=== PATIENT | female | born 1940 | race Caucasian/White ===

== ENCOUNTER 2017-01-04 09:53 | Outpatient (CLI) | payer MEDICARE, MEDICAID ==
--- NOTE | 2017-01-04 12:50 | MMO ---
BILATERAL SCREENING MAMMOGRAMS: Comparison is made to prior mammogram exams of 2016 and 2015. Interpreted with computer-aided detection. Scattered fibroglandular densities. Benign-appearing calcifications seen in both breasts. No evide nce of mass or distortion. No interval change noted. Recommend 1-year followup. IMPRESSION: BIRADS 2: Benign Finding(s) Routine annual screening mammography (for women over age 40) POS: [facility]
== END 2017-01-04 09:54 | disposition home or self-care (01) ==
LOC: SCSMAMMO 09:53 → MAMMO 09:54
PROVIDERS: ATTEND Family Medicine
DX: Z12.31 Encounter for screening mammogram for malignant neoplasm of breast (principal)
CPT/HCPCS: 77067; G0202

== ENCOUNTER 2017-09-27 09:15 | Outpatient (CLI) | payer MEDICARE, MEDICAID ==
--- NOTE | 2017-09-27 12:11 | MRI ---
MRI OF THE LUMBAR SPINE WITH AND WITHOUT IV CONTRAST: Date: 09/27/17 INDICATION: History of back surgery with low back pain and left-sided radiculopathy. There is concern for spinal stenosis. COMPARISON: Prior exam dated 04/28/16. TECHNIQUE: Multiplanar, multisequence MR images were obtained of the lumbar spine with and without contrast foll owing administration of 19 mL MultiHance. FINDINGS: Again seen is loss of normal disc space height and signal at all lumbar intervertebral levels, but mo st pronounced at L3-4 through L5-S1. There is postprocedural change again seen consistent with sydnie ctomy at L5-S1. The visualized retroperitoneum reveals no definite acute abnormality. No acute fracture is evident. At L5-S1, there is a residual broad based disc bulge that is slightly more asymmetric to the right th at does encroach on the lateral recess of L5-S1 without definite impingement of the traversing right S1 nerve root. There is some mild enhancement surrounding the traversing right S1 nerve root, which i s suspicious for a small amount of fibrosis around the exiting nerve root. This is most evident on im age 48 of series 10. This is within the region of mild fibrosis seen within the anterior epidural spa ce at the L5-S1 laminectomy site on the comparison examination. No appreciable neural foraminal narrowing or central canal narrowing is demonstrated. At L4-5, there is a broad based bulge with facet hypertrophy inducing mild bilateral neural foraminal narrowing, which is stable. At L3-4, there is a broad based bulge with ligamentum flavum hypertrophy and facet hypertrophy induci ng mild central canal narrowing and mild bilateral neural foraminal narrowing, which is stable. At L2-3, there is a broad based bulge with facet hypertrophy inducing mild central canal narrowing wi th mild bilateral neural foraminal narrowing which is stable. At L1-L2, there is a broad based bulge with facet hypertrophy inducing mild bilateral neural foramina l narrowing, which is stable. At T12-L1, there is no appreciable central canal or neural foraminal narrowing. On the postcontrast images, there is no appreciable enhancement of the nerve root. IMPRESSION: 1. Slightly asymmetric to the right broad based disc bulge at L5-S1 likely inducing at least mild to moderate right lateral recess narrowing at L5-S1 without definite impingement of traversing S1 nerve root. 2. Mild enhancement likely related to perineural scar involving the right S1 nerve root as it amairani ses the lateral recess at the L5-S1 level. 3. All of the above findings appear similar to the comparison examination. 4. Mild neural foraminal narrowing at L1-2 through L4-5, stable. 5. Mild central canal narrowing at L2-3 and L3-4 are stable. POS: [facility]
[2017-09-27] MEDS ORDERED: Gadobenate Dimeglumine 529 MG/1 ML (20ML VIAL) ONE (13:20)
== END 2017-09-27 09:16 | disposition home or self-care (01) ==
LOC: TBSIIMAG 09:15
PROVIDERS: ATTEND Nurse Practitioner Family
DX: M48.062 Spinal stenosis, lumbar region with neurogenic claudication (principal); M48.07 Spinal stenosis, lumbosacral region; M51.27 Other intervertebral disc displacement, lumbosacral region; M99.83 Other biomechanical lesions of lumbar region
CPT/HCPCS: 72158; 82565; A9579

== ENCOUNTER 2017-12-28 13:03 | Observation (INO) | payer MEDICARE, MEDICAID ==
[2017-12-28 14:53] LABS: #Basophils 0.1 thou/uL (0.0-0.2); #Eosinphils 0.2 thou/uL (0.0-0.7); #Lymphocytes 2.5 thou/uL (1.20-3.40); #Monocytes 0.5 thou/uL (0.11-0.59); #Neutrophils 3.9 thou/uL (1.40-6.50); %Basophils 0.7 % (0.0-1.0); %Eosinophils 3.2 % (0.0-10.0); %Lymphocytes 34.4 % (21.0-51.0); %Monocytes 7.6 % (0.0-10.0); %Neutrophils 54.1 % (42.0-75.0); Hemoglobin 14.8 g/dL (12.0-16.0); Mean Corpuscular HGB CONC 33.4 g/dL (32.0-36.0); Mean Corpuscular Volume 92.7 fL (78.0-98.0); Mean Platelet Volume 5.9 fL (7.4-10.4); Platelet Count 285 thou/uL (130-400); RBC Distribution Width 12.3 % (11.5-14.5); Red Blood Cell (RBC) Count 4.77 mill/uL (4.20-5.40); White Blood Cell (WBC) Count 7.2 thou/uL (4.8-10.8)
--- NOTE | 2017-12-28 15:06 | RAD ---
PORTABLE CHEST: HISTORY: Dyspnea. Sudden onset of chest and right jaw pain. COMPARISON: 11/01/2013 study. FINDINGS: Heart size is enlarged with atherosclerotic changes of the aorta. The lungs are clear of any infiltr ates. No signs of overt failure. Postoperative changes of the right shoulder are present. IMPRESSION: Cardiomegaly. No acute findings. POS: [facility]
--- NOTE | 2017-12-28 15:08 | CT ---
CT HEADA WITHOUT CONTRAST: Date: 12/28/17 Multiple axial tomograms obtained through the head without IV enhancement. INDICATION: Mental status change. FINDINGS: The ventricles have normal size and position. No evidence of intracranial mass, hemorrhage, or infarc t. Sinuses and mastoids are well aerated. IMPRESSION: No acute findings. POS: [facility]
[2017-12-28 15:14] LABS: Bilirubin Negative (Negative); Blood, Urine Negative (Negative); Clarity CLEAR (Clear); Glucose, Urine (Dipstick) Negative (Negative); Leukocyte Negative (Negative); Nitrite Negative (Negative); Protein, Urine (Dipstick) Negative (Neg-Trace); Specific Gravity, Urine 1.009 (1.002-1.036); Urobilinogen 0.2 mg/dL (0.2-1.0)
[2017-12-28 15:21] LABS: ALT (SGPT) 16 U/L (8-55); AST (SGOT) 19 U/L (5-34); Albumin 4.4 g/dL (3.4-4.8); Alkaline Phosphatase 98 U/L (40-150); Anion Gap 13 mmol/L (10-20); BUN (Urea Nitrogen) 11 mg/dL (9.8-20.1); Bilirubin, Total 0.3 mg/dL (0.2-1.2); Calc. Creatinine Clearance 0 mL/min (70-130); Carbon Dioxide 23 mmol/L (23-31); Chloride 105 mmol/L (98-107); Estimated GFR-MDRD 82; Globulin 3.3 g/dL (2.4-3.5); Glucose 99 mg/dL (83-110); Potassium 4.6 mmol/L (3.5-5.1); Protein, Total 7.7 g/dL (6.0-8.3); Sodium 136 mmol/L (136-145)
[2017-12-28 15:25] LABS: CKMB 2.1 ng/mL (0-6.6); Troponin I Less than 0.010 ng/mL (< 0.028)
[2017-12-28] MEDS ORDERED: Acetaminophen 325 MG TAB ONE (18:54)
[2017-12-28 19:14] LABS: Troponin I Less than 0.010 ng/mL (< 0.028)
[2017-12-28] MEDS ORDERED: Ondansetron HCl/PF 4 MG/2 ML Vial IVP PRN (21:25)
[2017-12-28] MEDS ORDERED: Aspirin 325 mg Enteric Coated Tablet PO SCH (21:45)
[2017-12-28 21:46] LABS: Troponin I Less than 0.010 ng/mL (< 0.028)
--- NOTE | 2017-12-29 10:27 | CON ---
DATE OF CONSULTATION: 12/29/2017 CONSULTING PHYSICIAN: Hospitalist Service IMPRESSION: 1. Possible transient ischemic attack with transient dizziness and right-sided facial numbness. 2. Hypertension. 3. Hyperlipidemia. PLAN: 1. Aspirin 81 mg a day. 2. Carotid ultrasound. 3. Echocardiogram. 4. MRI of the brain. Ms. 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 There is a slight amount of nausea associated with it. There was no associated h eadache, slurred speech, difficulty swallowing, double vision, lateralized weakness or numbness of th e extremities. Symptoms lasted around 2 hours by her account. She came to the emergency room and quesada d a CT scan of the brain done. She was told that nothing remarkable was found. Her EKG showed vince l sinus rhythm. No other information is available at this point due to the fact the computer systems are down. She denies any past history of stroke-like symptoms in the past. She was not consistent about taking aspirin on a daily basis. She cannot tolerate statins. PAST MEDICAL HISTORY: Past history also notable for lower back pain with radicular symptoms in the l eft leg, bowel obstruction, irritable bowel syndrome, ulcerative colitis, some type of cardiac "spasm " followed by Dr. Marquez. ALLERGIES: CODEINE, HYDROCODONE. SOCIAL HISTORY: No tobacco or alcohol use. FAMILY HISTORY: Noncontributory. REVIEW OF SYSTEMS: No complaint of chest pain, shortness of breath, alteration of consciousness, abd ominal pain or upset stomach. PHYSICAL EXAMINATION: GENERAL: She is a well-nourished elderly lady in no distress. VITAL SIGNS: Blood pressure 141/86, pulse 70, respirations 16, temperature 98.3. HEENT: Pupils equal and reactive. Conjunctivae clear. Oropharynx clear. NECK: Supple. EXTREMITIES: No cyanosis, clubbing or edema. 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 NEUROLOGIC: She is alert and appropriate. Her speech is fluent and clear. Cranial nerves are intac t. No focal deficits are noted. Gait was not tested. SUMMARY: This is a 77-year-old woman with past history of hypertension with transient symptoms sugge stive of possible basilar ischemia. Workup is underway. Would continue her on aspirin and given dina t she cannot tolerate statins we will have to forego treatment in this area.
[2017-12-29] MEDS: Aspirin 325 mg Enteric Coated Tablet PO SCH (11:23)
[2017-12-29] MEDS: Enoxaparin Sodium 40 MG/0.4 ML SYRINGE SC SCH (11:23)
--- NOTE | 2017-12-29 11:48 | ULT ---
CAROTID ULTRASOUND WITH GOMEZ SCALE AND DOPPLER DUPLEX COLOR FLOW IMAGING SPECTRAL ANALYSIS PERFORMED: CLINICAL INDICATION: TIA. FINDINGS: There is mild scattered atherosclerotic calcification of the carotid arteries. PEAK SYSTOLIC VELOCITY (CM/S): Right CCA 86 Left CCA 100 Right ICA 92 Left ICA 96 There is antegrade directional flow within the visualized bilateral vertebral arteries. IMPRESSION: 1. No hemodynamically significant stenosis of the right internal carotid artery. 2. No hemodynamically significant stenosis of the left internal carotid artery. POS: [facility]
[2017-12-29 12:42] LABS: Anion Gap 12 mmol/L (10-20); BUN (Urea Nitrogen) 13 mg/dL (9.8-20.1); Calc. Creatinine Clearance 0 mL/min (70-130); Calcium 10.8 mg/dL (7.8-10.44); Carbon Dioxide 26 mmol/L (23-31); Cardiac Risk 5.6 (Less than 4.5); Chloride 103 mmol/L (98-107); Cholesterol 274 mg/dl (< 200 Desired); Estimated GFR-MDRD 77; Glucose 104 mg/dL (83-110); HDL Cholesterol 49 mg/dL (>60 Neg Risk); LDL Cholesterol, Calculated 188 mg/dL; Sodium 137 mmol/L (136-145); Triglycerides 186 mg/dL (Less than 150)
--- NOTE | 2017-12-29 12:42 | MRI ---
MRI BRAIN WITHOUT CONTRAST: INDICATIONS: TIA. Mental status change. TECHNIQUE: Multiplanar, multisequence imaging of the brain obtained. FINDINGS: The ventricles have normal size and position. Mild chronic ischemic white matter change. There is n o evidence of restricted diffusion. There is no evidence of acute infarct, mass, or edema. The intracranial internal carotid arteries and proximal cerebral arteries show flow voids. IMPRESSION: Mild chronic ischemic change. No evidence of acute infarct. POS: [facility]
[2017-12-29] MEDS ORDERED: TRAMADOL HCL 50 MG PO PRN (15:45)
[2017-12-29 17:45] LABS: Hemoglobin 14.1 g/dL (12.0-16.0); White Blood Cell (WBC) Count 7.3 thou/uL (4.8-10.8)
[2017-12-29 17:46] LABS: #Eosinphils 0.2 thou/uL (0.0-0.7); #Lymphocytes 2.7 thou/uL (1.20-3.40); #Monocytes 0.6 thou/uL (0.11-0.59); #Neutrophils 3.7 thou/uL (1.40-6.50); %Basophils 0.6 % (0.0-1.0); %Eosinophils 2.9 % (0.0-10.0); %Monocytes 8.3 % (0.0-10.0); %Neutrophils 51.3 % (42.0-75.0); Mean Corpuscular HGB CONC 31.9 g/dL (32.0-36.0); Mean Corpuscular Volume 94.1 fL (78.0-98.0); Mean Platelet Volume 6.6 fL (7.4-10.4); Platelet Count 286 thou/uL (130-400); RBC Distribution Width 12.5 % (11.5-14.5)
[2017-12-29] MEDS: Acetaminophen 325 MG TAB PO PRN ×2 (18:47→23:11)
[2017-12-29] MEDS ORDERED: Atorvastatin Calcium 40 MG TAB PO SCH (21:00)
[2017-12-30] MEDS ORDERED: Isosorbide Mononitrate 20 MG TAB PO SCH (09:00)
[2017-12-30] MEDS ORDERED: Amlodipine 5 MG TAB PO SCH (09:00)
[2017-12-30] MEDS: Enoxaparin Sodium 40 MG/0.4 ML SYRINGE SC SCH (09:05)
[2017-12-30] MEDS: Aspirin 325 mg Enteric Coated Tablet PO SCH (09:07)
[2017-12-30 12:08] VITALS: BP 128/63; TEMP 98.6
--- NOTE | 2017-12-30 12:36 | DIS ---
DATE OF ADMISSION: 12/29/2017 DATE OF DISCHARGE: 12/30/2017 PRIMARY CARE PHYSICIAN: KRYSTA Sanchez DISCHARGE DIAGNOSES: 1. Transient ischemic attack. 2. Statin intolerance. 3. Hypertension. 4. Dyslipidemia. 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 6. History of bowel obstruction x2. 7. History of bulging disk causing pinched nerve in lower back with left lower leg radiculopathy. 8. Gastroesophageal reflux disease. 9. Peripheral neuropathy, non-diabetic 10. Arthritis. DISCHARGE MEDICATIONS: New medications; aspirin 325 mg daily and flaxseed oil 1000 mg daily. Resume home medications as follows; isosorbide mononitrate 10 mg daily, Flexeril 10 mg p.o. t.i.d. p.r.n., amlodipine 5 mg daily, multivitamin daily, Zoloft 25 mg daily, Protonix 40 mg at bedtime, lisinopril 40 mg at bedtime, tramadol p.r.n. PROCEDURES DONE IN THE HOSPITAL: 1. Carotid Doppler ultrasound, which is negative for any hemodynamically significant stenosis. 2. MRI of the brain which shows mild chronic ischemic changes without evidence of acute infarction. 3. Transthoracic echocardiogram which shows preserved ejection fraction at 55%-60% and diastolic dys function, mild. INHOUSE CONSULTATION: Neurology, Dr. Anshu Graham. HISTORY OF PRESENTING ILLNESS: Ms. Ho is a pleasant 77-year-old female who presented to the [facility] room with complaints of severe dizziness while sitting in her recliner associated with numbness in the right jaw, mild headache, shortness of breath, dry cough and nausea. She was admitted as a T IA rule out. Initial CT scan done in the emergency room was unremarkable. Twelve lead EKG showed le ft ventricular hypertrophy. Chest x-ray showed cardiomegaly. She was given 325 mg of aspirin and was admitted to stroke floor fo r further workup. HOSPITAL COURSE: The patient was seen by Dr. Graham from Neurology department as well as Stroke [facility]. She underwent CVA workup with echo, MRI and carotid Doppler ultrasound. All were unremarkable. Dr. Graham thought this might be a TIA and her aspirin dose was increased from 81 to 325 mg daily, e nteric-coated. She tolerated this very well. As of this morning, she is back to her baseline and quesada s no reoccurrence of her symptoms. She has been cleared by speech therapist, occupational therapist and physical therapist as well. She already has home health and she will resume the home health with OT, PT and assisted at home. She was seen and examined prior to discharge. PHYSICAL EXAMINATION: VITAL SIGNS: Stable. Blood pressure 128/63, heart rate 67, temperature 98.6, saturating 93% on room air. NEUROLOGIC: Examination is nonfocal. CHEST: Clear to auscultation bilaterally. LABORATORY DATA: Urinalysis is unremarkable. Serum chemistries showed triglycerides 186, total chol esterol 274, LDL 188, HDL 49. Cardiac enzymes were trended and were negative troponin x3. Please note that the patient has a statin intolerance. She will be taking fish oil or omega 3 flaxse ed oil, whichever she prefers for hypertriglyceridemia. I do see Livalo listed as a home medication in the emergency room, but for some reason it was not listed as a medication when it was reconsulted upon the floor. The patient will resume it if she is actually taking it. She will follow up with [facility] care physician in 7-10 days.
--- NOTE | 2018-01-01 10:15 | HP ---
PRIMARY CARE DOCTOR: KRYSTA Sanchez CODE STATUS: FULL CODE. TIME OF EVALUATION: This note is written post hours since there was computer system problems. The grisel gonzalez was seen on 12/28/2017 at around 8:00 p.m. CHIEF COMPLAINT: Dizziness. HISTORY OF PRESENT ILLNESS: This is a 77-year-old female patient with past medical history of multip le comorbidities including ulcerative colitis, deformity of the left upper extremity, arrhythmia, hyp erlipidemia, hypertension, nondiabetic neuropathy, came to the hospital after having complaints of se lyn dizziness, the symptoms started around 10:00 a.m. in the morning, when she was sitting in her re cliner. She reported also some numbness in the right side of the face and symptoms were also spread into the right upper and lower extremity. The patient reported that the symptoms were moderate. No clear triggers, no alleviating factors. Symptoms have been on and off, but has been improving during the night. REVIEW OF SYSTEMS: No fever, chills, generalized weakness. Respiratory: No cough, sputum productio n or shortness of breath. Cardiovascular: No chest pain or palpitations. Gastrointestinal: No nausea, no vomiting, diarrhea or abdominal pain. ADHESION TESTER: The patient had dizzine ss that is right side, tingling and numbness mostly on the face. Not feeling lightheaded. Genitouri nary: No burning on urination. Extremities: No leg swelling. All systems are reviewed and negativ e except for the findings mentioned above. PAST MEDICAL HISTORY: Positive for the findings mentioned in the HPI. PAST SURGICAL HISTORY: Positive for bilateral cataract surgery, low back spur removal, appendectomy, cholecystectomy, hysterectomy, bilateral knee replacement, bilateral feet surgery, history of tubal ligation, right rotator cuff surgery, and right elbow surgery x2. PSYCHIATRIC HISTORY: No previous psychiatric history. SOCIAL HISTORY: The patient denies alcohol. Denies drugs. No smoking history. FAMILY HISTORY: Reviewed and noncontributory for current presentation. ALLERGIES: CODEINE, HYDROCODONE, STATINS. REPORTED MEDICATIONS: Lisinopril, pantoprazole, isosorbide mononitrate, amlodipine, sertraline, Liva lo, meloxicam, Vison Vitamin, fish oil. PHYSICAL EXAMINATION: VITAL SIGNS: On presentation, blood pressure 166/82 with heart rate 64, respiratory rate was 20, tem perature 98.2, oxygen saturation 94% on room air. GENERAL APPEARANCE: The patient is alert, oriented, no acute distress. HEENT: Normocephalic, conjunctivae. Moist oral mucosa. Anicteric. NECK: No JVD. RESPIRATORY: Bilateral air entry. No rales, no wheezing. Symmetric expansion. CARDIOVASCULAR: Normal rate, regular rhythm. No murmurs, no gallop. No edema. ABDOMEN: Soft, normal bowel sounds. MUSCULOSKELETAL: Baseline range of motion and strength. No tenderness. SKIN: Warm and intact. No pallor, no rash, no redness. Peripheral pulses are present. Capillary r efill seems to be intact. NEUROLOGIC: The patient has possible right-sided weakness . No evidence of any other focal wea kness. Baseline speech. Cranial nerves II-XII intact. PSYCHIATRIC: The patient is in good mood, little bit anxious due to the findings, oriented and optim al judgment. LABORATORY DATA: EKG was discussed with performing physician from ER shows normal sinus rhythm with a rate of 65, minimum voltage criteria for LVH, no acute ischemic event. Findings were seen. RADIOLOGY: The patient had negative CT head without contrast. The chest x-ray showed cardiomegaly, no acute findings. The labs were reviewed by myself. The patient has a white count 7.2, hemoglobin 14.8, MCV 92.7, platelet count 185. Chemistry: Sodium 136, potassium 4.6, chloride 105, carbon diox pete 23, anion gap 13, BUN 11, creatinine 0.6, GFR 82, glucose 99, calcium 11, total bilirubin 0.3, T 19, ALT 16, alkaline phosphatase 98, CK-MB 2.1. Troponin has been negative x3. Triglyceride was c hecked this morning is 186, cholesterol 274. UA was done and was negative. ASSESSMENT AND PLAN: The patient was placed in the hospital with following medical problems: 1. Possible transient ischemic attack. The patient will have a stroke protocol. We will do MRI, ca rotid Doppler, echo, consult Neurology. We will follow workup and consultation recommendation for fu rther management. Neuro checks. 2. Hypercalcemia. Calcium 11.0, gradually this is mild, might need some IV fluids, monitor and adju st treatment as needed. 3. Hyperlipidemia, triglycerides were high and high cholesterol and checked this morning, we will re concile home meds, we will adjust treatment as needed, low cholesterol diet is advised. 4. Uncontrolled hypertension, systolic blood pressure in the 160s. I will reconcile home meds, we w ill allow permissive hypertension given new onset of neurological symptoms. 5. Risk assessment, the patient is a high risk due to new presentation of neurological symptoms and high risk for developing larger stroke . 6. Deep venous thrombosis prophylaxis.
== END 2017-12-30 14:10 | disposition home health service (06) ==
LOC: 2SE 13:03 → ERS 13:03 → 2SE 17:35
PROVIDERS: ADMIT Internal Medicine; ATTEND Internal Medicine
DX: G45.9 Transient cerebral ischemic attack, unspecified (principal); E78.5 Hyperlipidemia, unspecified; G62.9 Polyneuropathy, unspecified; E83.52 Hypercalcemia; Q74.0 Other congenital malformations of upper limb(s), including shoulder girdle; K58.9 Irritable bowel syndrome, unspecified; M51.16 Intervertebral disc disorders with radiculopathy, lumbar region; M19.90 Unspecified osteoarthritis, unspecified site; I10 Essential (primary) hypertension; Z88.5 Allergy status to narcotic agent; Z79.899 Other long term (current) drug therapy; Z88.8 Allergy status to other drugs, medicaments and biological substances
CPT/HCPCS: 70450; 70551; 71045; 80048; 80053; 80061; 81003; 82553; 84484 ×2; 85025 ×2; 90662; 93005; 93306; 93880; 96372 ×2; 97139; 99285; G0008; G0378 ×2; G8978; G8979; G8980; 36415; 90471; G8996-GN-CH; G8997-GN-CH; G8998-GN-CH; J1650

== ENCOUNTER 2018-08-30 11:30 | Emergency (ER) | payer MEDICARE, OTHER ==
[2018-08-30 12:09] LABS: #Basophils 0.1 thou/uL (0.0-0.2); #Eosinphils 0.2 thou/uL (0.0-0.7); #Monocytes 0.8 thou/uL (0.11-0.59); %Basophils 0.8 % (0.0-1.0); %Lymphocytes 37.3 % (21.0-51.0); %Neutrophils 49.8 % (42.0-75.0); Hemoglobin 14.4 g/dL (12.0-16.0); Mean Corpuscular HGB CONC 33.4 g/dL (32.0-36.0); Mean Corpuscular Hemoglobin 30.7 pg (27.0-31.0); Mean Corpuscular Volume 91.9 fL (78.0-98.0); Mean Platelet Volume 5.9 fL (7.4-10.4); Platelet Count 298 thou/uL (130-400); RBC Distribution Width 12.6 % (11.5-14.5); Red Blood Cell (RBC) Count 4.71 mill/uL (4.20-5.40); White Blood Cell (WBC) Count 7.9 thou/uL (4.8-10.8)
[2018-08-30 12:32] LABS: ALT (SGPT) 18 U/L (8-55); AST (SGOT) 17 U/L (5-34); Albumin 4.4 g/dL (3.4-4.8); Alkaline Phosphatase 110 U/L (40-150); Anion Gap 12 mmol/L (10-20); BUN (Urea Nitrogen) 11 mg/dL (9.8-20.1); Bilirubin, Total 0.3 mg/dL (0.2-1.2); Calc. Creatinine Clearance 0 mL/min (70-130); Calcium 11.3 mg/dL (7.8-10.44); Carbon Dioxide 28 mmol/L (23-31); Chloride 102 mmol/L (98-107); Estimated GFR-MDRD 76; Globulin 3.5 g/dL (2.4-3.5); Glucose 91 mg/dL (83-110); Magnesium 2.7 mg/dL (1.6-2.6); Potassium 4.6 mmol/L (3.5-5.1); Protein, Total 7.9 g/dL (6.0-8.3); Sodium 137 mmol/L (136-145)
[2018-08-30 13:32] LABS: Bilirubin Negative (Negative); Blood, Urine Negative (Negative); Clarity CLEAR (Clear); Glucose, Urine (Dipstick) Negative (Negative); Leukocyte Trace (Negative); Nitrite Negative (Negative); Protein, Urine (Dipstick) Negative (Neg-Trace); Specific Gravity, Urine 1.008 (1.002-1.036); Urobilinogen 0.2 mg/dL (0.2-1.0)
[2018-08-30 13:39] LABS: Bacteria/HPF None Seen HPF (None Seen); Hyaline Casts/LPF 0-3 HYALINE CAST LPF (0-3 Hyaline); RBC/HPF 0-3 HPF (0-3); Squamous Epithelial 0-3 HPF (0-3); WBC/HPF 0-3 HPF (0-3)
[2018-08-30] MEDS ORDERED: traMADol HCl 50 MG TAB ONE (14:13)
== END 2018-08-30 14:25 | disposition home or self-care (01) ==
LOC: ERS 11:30
DX: M62.830 Muscle spasm of back (principal); I49.9 Cardiac arrhythmia, unspecified; E78.5 Hyperlipidemia, unspecified; K21.9 Gastro-esophageal reflux disease without esophagitis; I10 Essential (primary) hypertension; M19.90 Unspecified osteoarthritis, unspecified site; F41.9 Anxiety disorder, unspecified; Z79.899 Other long term (current) drug therapy; Z79.82 Long term (current) use of aspirin
CPT/HCPCS: 36415; 80053; 81003; 81015; 83735; 85025; 96360; 96361

== ENCOUNTER 2018-09-24 12:22 | Outpatient (CLI) | payer MEDICARE, MEDICAID ==
--- NOTE | 2018-09-24 13:02 | BD ---
Exam: DEXA bone density study: HISTORY: Postmenopausal, estrogen deficiency. COMPARISON: 11/05/2015. FINDINGS: Lumbar Spine: BMD (g/cm2) L1 0.948 T-Score: -0.4 L2 1.080 T-Score: +0.5 L3 1.178 T-Score: +0.9 L4 1.076 T-Score: +0.1 L1-L4 1.073 T-Score: +0.2 Within normal limits with no increased risk for fracture. Essentially stable from prior study. Left Hip: Femoral Neck: 0.600 T-Score: -2.2 Total Femur: 0.770 T-Score: -1.4 Evidence for osteopenia with increased risk for fracture. Bone mineral density has decreased approximately 1% from the prior study. Transcribed Date/Time: 09/24/2018 1:23 PM
== END 2018-09-24 12:23 | disposition home or self-care (01) ==
LOC: BICMAMMO 12:22
PROVIDERS: ATTEND Nurse Practitioner
DX: Z78.0 Asymptomatic menopausal state (principal); M85.859 Other specified disorders of bone density and structure, unspecified thigh
CPT/HCPCS: 77080

== ENCOUNTER 2020-08-02 00:10 | Inpatient (IN) | payer MEDICARE, MEDICAID ==
[2020-08-02] MEDS ORDERED: Ketamine 50 MG/ML (10ML VIAL) ONE (02:25)
[2020-08-02] MEDS ORDERED: Midazolam HCl 2 mg/2 ml Vial ONE (02:26)
[2020-08-02] MEDS ORDERED: Iothalamate Meglumine 60% 50 ML VIAL FS ONE (02:27)
[2020-08-02 02:32] LABS: SARS-CoV-2 NAA Rapid Test Not Detected (NotDetected)
[2020-08-02] MEDS ORDERED: PROPOFOL 200 MG/20 ML VIAL ONE (02:32)
[2020-08-02] MEDS ORDERED: Senokot S 8.6-50 MG TAB PO PRN (02:33)
[2020-08-02] MEDS ORDERED: Bisacodyl 5 MG TAB PO PRN (02:33)
[2020-08-02] MEDS ORDERED: Ondansetron PF 4 MG/2 ML Vial IVP PRN (02:33)
[2020-08-02] MEDS ORDERED: Morphine 2 MG/ML VIAL SLOW IVP PRN (02:35)
[2020-08-02] MEDS ORDERED: hydrALAZINE 20 MG/ML VIAL SLOW IVP PRN (02:35)
[2020-08-02] MEDS ORDERED: Ondansetron PF 4 MG/2 ML Vial ONE ×2 (03:06→03:07)
[2020-08-02 04:50] VITALS: BMI 38.0
[2020-08-02] MEDS: Potassium Chloride 10 MEQ in Dextrose 5%-Lactated Ringers 1,000 ML IV SCH ×2 (05:05→08:23)
[2020-08-02 05:50] LABS: Hemoglobin 13.1 g/dL (12.0-16.0); Mean Corpuscular HGB CONC 32.9 g/dL (32.0-36.0); Mean Corpuscular Hemoglobin 30.6 pg (27.0-31.0); Mean Corpuscular Volume 93.1 fL (78.0-98.0); Mean Platelet Volume 6.5 fL (7.4-10.4); Platelet Count 251 thou/uL (130-400); RBC Distribution Width 12.5 % (11.5-14.5); Red Blood Cell (RBC) Count 4.28 mill/uL (4.20-5.40); White Blood Cell (WBC) Count 11.2 thou/uL (4.8-10.8)
[2020-08-02 06:09] LABS: ALT (SGPT) 16 U/L (8-55); AST (SGOT) 18 U/L (5-34); Albumin 3.7 g/dL (3.4-4.8); Alkaline Phosphatase 106 U/L (40-110); Anion Gap 12 mmol/L (10-20); BUN (Urea Nitrogen) 13 mg/dL (9.8-20.1); Bilirubin, Total 0.3 mg/dL (0.2-1.2); Calc. Creatinine Clearance 82 mL/min (70-130); Calcium 10.7 mg/dL (7.8-10.44); Carbon Dioxide 23 mmol/L (23-31); Chloride 107 mmol/L (98-107); Globulin 3.1 g/dL (2.4-3.5); Glucose 114 mg/dL (83-110); Potassium 4.2 mmol/L (3.5-5.1); Protein, Total 6.8 g/dL (5.8-8.1); Sodium 138 mmol/L (136-145)
[2020-08-02 06:21] LABS: Band 9 % (5-11); Eosinophils 1 % (0-10); Lymphocytes 13 % (21-51); MDiff Complete? YES; Monocytes 4 % (0-10); Neutrophil 72 % (42-75); Platelet Morphology Comment Appears Adequate; RBC Morphology Normal; Reactive Lymphocytes 1 % (0-10)
[2020-08-02] MEDS: Enoxaparin Sodium 30 MG/0.3 ML SYRINGE SC SCH (07:56)
[2020-08-02] MEDS: Amlodipine 5 MG TAB PO SCH (07:56)
[2020-08-02] MEDS: Famotidine 20 MG TAB PO SCH ×2 (07:56→20:26)
[2020-08-02] MEDS: Aspirin 325 mg Enteric Coated Tablet PO SCH (07:56)
[2020-08-02] MEDS: Acetaminophen 325 MG TAB PO PRN (20:25)
[2020-08-02] MEDS: Morphine 4 MG/ML VIAL SLOW IVP PRN (22:55)
[2020-08-03] MEDS: Potassium Chloride 10 MEQ in Dextrose 5%-Lactated Ringers 1,000 ML IV SCH ×3 (02:17→19:40)
[2020-08-03] MEDS: Amlodipine 5 MG TAB PO SCH (10:06)
[2020-08-03] MEDS: Cholecalciferol (Vitamin D3) 400 UNITS TAB PO SCH (10:06)
[2020-08-03] MEDS: Famotidine 20 MG TAB PO SCH ×2 (10:06→20:22)
[2020-08-03] MEDS: Aspirin 325 mg Enteric Coated Tablet PO SCH (10:06)
[2020-08-03] MEDS: Enoxaparin Sodium 30 MG/0.3 ML SYRINGE SC SCH (10:07)
[2020-08-03] MEDS: Morphine 4 MG/ML VIAL SLOW IVP PRN (12:48)
[2020-08-03] MEDS ORDERED: Zoledronic Acid 4 MG in Sodium Chloride 0.9% 100 ML IVPB SCH (16:45)
[2020-08-03] MEDS: FLAXSEED OIL 1000 MG PO SCH (22:02)
[2020-08-03] MEDS: Acetaminophen 325 MG TAB PO PRN (22:25)
[2020-08-04] MEDS: Potassium Chloride 10 MEQ in Dextrose 5%-Lactated Ringers 1,000 ML IV SCH ×2 (05:24→15:55)
[2020-08-04 07:12] LABS: Anion Gap 11 mmol/L (10-20); BUN (Urea Nitrogen) 9 mg/dL (9.8-20.1); Calc. Creatinine Clearance 84 mL/min (70-130); Carbon Dioxide 24 mmol/L (23-31); Chloride 108 mmol/L (98-107); Glucose 109 mg/dL (83-110); Potassium 4.2 mmol/L (3.5-5.1); Sodium 139 mmol/L (136-145)
[2020-08-04] MEDS: Famotidine 20 MG TAB PO SCH ×2 (08:34→20:29)
[2020-08-04] MEDS: Cinacalcet HCl 30 MG TAB PO SCH (08:34)
[2020-08-04] MEDS: Cholecalciferol (Vitamin D3) 400 UNITS TAB PO SCH (08:34)
[2020-08-04] MEDS: Amlodipine 5 MG TAB PO SCH (08:34)
[2020-08-04] MEDS: Aspirin 325 mg Enteric Coated Tablet PO SCH (08:34)
[2020-08-04] MEDS: Enoxaparin Sodium 30 MG/0.3 ML SYRINGE SC SCH (08:35)
[2020-08-04] MEDS ORDERED: Iopamidol-370 76% 500 ML 1 ML ONE (10:06)
[2020-08-04] MEDS ORDERED: Diphenoxylate HCl/Atropine Tablet PO PRN (12:15)
[2020-08-04] MEDS: Acetaminophen 325 MG TAB PO PRN ×2 (14:55→21:51)
[2020-08-04] MEDS: Artificial Tear Sol 15 ML BOT EA EYE SCH ×2 (15:54→20:29)
[2020-08-05] MEDS: Potassium Chloride 10 MEQ in Dextrose 5%-Lactated Ringers 1,000 ML IV SCH (05:39)
[2020-08-05] MEDS: Aspirin 325 mg Enteric Coated Tablet PO SCH (08:44)
[2020-08-05] MEDS: Famotidine 20 MG TAB PO SCH (08:44)
[2020-08-05] MEDS: Amlodipine 5 MG TAB PO SCH (08:44)
[2020-08-05] MEDS: Cholecalciferol (Vitamin D3) 400 UNITS TAB PO SCH (08:44)
[2020-08-05] MEDS: Artificial Tear Sol 15 ML BOT EA EYE SCH (08:44)
[2020-08-05] MEDS: Cinacalcet HCl 30 MG TAB PO SCH (08:44)
[2020-08-05] MEDS: Enoxaparin Sodium 30 MG/0.3 ML SYRINGE SC SCH (08:45)
[2020-08-05] MEDS ORDERED: traMADol HCl 50 MG TAB PO PRN ×2 (09:44)
[2020-08-05 11:44] VITALS: BP 156/97; TEMP 99.5
== END 2020-08-05 12:01 | disposition home or self-care (01) | DRG 988 ==
LOC: ERS 00:10 → SURG B 01:53 → OBSVTOIN 08-04 12:57
PROVIDERS: ADMIT Internal Medicine; ATTEND Internal Medicine
PROC: 0T778DZ Dilation of Left Ureter with Intraluminal Device, Via Natural or Artificial Opening Endoscopic (ICD-10-PCS; principal; 2020-08-02)
PROC: BT1FYZZ Fluoroscopy of Left Kidney, Ureter and Bladder using Other Contrast (ICD-10-PCS; 2020-08-02)
DX: D35.1 Benign neoplasm of parathyroid gland (principal); N13.6 Pyonephrosis; N39.0 Urinary tract infection, site not specified; B96.20 Unspecified Escherichia coli [E. coli] as the cause of diseases classified elsewhere; Z66 Do not resuscitate; Z20.822 Contact with and (suspected) exposure to COVID-19; E55.9 Vitamin D deficiency, unspecified; G89.29 Other chronic pain; M54.40 Lumbago with sciatica, unspecified side; Z96.653 Presence of artificial knee joint, bilateral; E21.0 Primary hyperparathyroidism; E78.00 Pure hypercholesterolemia, unspecified; Z90.710 Acquired absence of both cervix and uterus; Z88.6 Allergy status to analgesic agent; Z98.49 Cataract extraction status, unspecified eye; Z88.5 Allergy status to narcotic agent; Z88.8 Allergy status to other drugs, medicaments and biological substances; Z79.899 Other long term (current) drug therapy; Z79.82 Long term (current) use of aspirin; Z90.49 Acquired absence of other specified parts of digestive tract; K21.9 Gastro-esophageal reflux disease without esophagitis; I10 Essential (primary) hypertension; K59.09 Other constipation
CPT/HCPCS: 36415; 70492; 74420; 78072; 80048; 80053; 82306; 83970; 85007; 85027; 87086; 96365; 96366; 96372; 96375; 96376; 99285; A9500; G0378; J1650; J1956; J2250; J2270; J2405; J2704; J3480; J3489; J3490; Q9961; Q9967; U0002

== ENCOUNTER 2021-06-23 15:12 | Emergency (ER) | payer MEDICARE, MEDICAID ==
[2021-06-23] MEDS ORDERED: Ondansetron PF 4 MG/2 ML Vial ONE (16:24)
[2021-06-23] MEDS ORDERED: Morphine 4 MG/ML VIAL ONE (16:25)
== END 2021-06-23 18:13 | disposition home or self-care (01) ==
LOC: ERS 15:12
DX: M79.662 Pain in left lower leg (principal); N30.00 Acute cystitis without hematuria; I10 Essential (primary) hypertension; K21.9 Gastro-esophageal reflux disease without esophagitis; E78.2 Mixed hyperlipidemia; M19.90 Unspecified osteoarthritis, unspecified site; Z87.19 Personal history of other diseases of the digestive system
CPT/HCPCS: 96374; 96375; J2270; J2405

== ENCOUNTER 2022-11-09 06:59 | Emergency (ER) | payer OTHER, MEDICAID ==
[2022-11-09] MEDS ORDERED: fentaNYL 50 mcg/mL 1 mL Vial ONE (07:48)
[2022-11-09 08:35] LABS: #Eosinphils 0.2 thou/uL (0.0-0.7); #Monocytes 0.6 thou/uL (0.11-0.59); %Basophils 0.4 % (0.0-1.0); %Eosinophils 2.2 % (0.0-10.0); %Lymphocytes 30.6 % (21.0-51.0); %Monocytes 8.3 % (0.0-10.0); %Neutrophils 58.2 % (42.0-75.0); Hematocrit 40.5 % (36.0-47.0); Hemoglobin 13.7 g/dL (12.0-16.0); Mean Corpuscular HGB CONC 33.8 g/dL (32.0-36.0); Mean Corpuscular Hemoglobin 31.2 pg (27.0-31.0); Mean Corpuscular Volume 92.3 fl (78.0-98.0); Mean Platelet Volume 8.4 fL (7.4-10.4); Platelet Count 289 10x3/uL (130-400); Red Blood Cell (RBC) Count 4.39 mill/uL (4.20-5.40); White Blood Cell (WBC) Count 6.8 10x3/uL (4.8-10.8)
[2022-11-09 08:58] LABS: ALT (SGPT) 13 U/L (8-55); AST (SGOT) 16 U/L (5-34); Albumin 4.1 g/dL (3.4-4.8); Alkaline Phosphatase 112 U/L (40-110); Anion Gap 13 mmol/L (10-20); BUN (Urea Nitrogen) 10 mg/dL (9.8-20.1); Bilirubin, Total 0.2 mg/dL (0.2-1.2); Calc. Creatinine Clearance 0 mL/min (70-130); Calcium 11.5 mg/dL (7.8-10.44); Carbon Dioxide 25 mmol/L (23-31); Chloride 106 mmol/L (98-107); Estimated GFR 86; Globulin 3.3 g/dL (2.4-3.5); Glucose 98 mg/dL (83-110); Potassium 4.1 mmol/L (3.5-5.1); Protein, Total 7.4 g/dL (5.8-8.1); Sodium 140 mmol/L (136-145)
== END 2022-11-09 09:32 | disposition home or self-care (01) ==
LOC: ERS 06:59
DX: M54.9 Dorsalgia, unspecified (principal); M54.2 Cervicalgia; K21.9 Gastro-esophageal reflux disease without esophagitis; E78.2 Mixed hyperlipidemia; W18.30XA Fall on same level, unspecified, initial encounter
CPT/HCPCS: 70450; 71045; 72125; 72128; 72131; 72170; 80053; 85025; 93005; J3010; 36415; 96374